=== PATIENT | female | born 1975 | race Caucasian/White ===

== ENCOUNTER → 2016-05-18 | Outpatient (CLI) | payer BC ==
--- NOTE | 2016-05-18 09:02 | MA ---
Screening Digital Mammogram With Tomosynthesis Clinical Indications: Routine screening. Technique: Standard digital cephalocaudal and tomosynthesis mediolateral oblique projections were ob tained. The digital images were processed by the [employer] computer aided detection system. Comparison: December 2014, December 2013 and August 2012. Breast density: D; The breast tissue is extremely dense. This may lower the sensitivity of mammograph y. There is diffuse prominent ductal pattern. Findings: CAD was reviewed. There is a 14 mm round density in the 12 o'clock position of the left eunice ast. The remainder of the left and right breast are stable. Impression: Mass versus cyst, upper left breast. Recommendation: Ultrasound for further evaluation.. BI-RADS 0. Additional imaging of the left breast. [facility] will send a result letter to the patient. Negative mammography should not preclude additional workup of a clinically suspicious finding. The patient's information is entered into a reminder system with a target due date for her next mammo gram.
== END ==
LOC: FIMAGING 08:24
DX: Z12.31 Encounter for screening mammogram for malignant neoplasm of breast (principal)
CPT/HCPCS: G0202

== ENCOUNTER → 2016-05-20 | Outpatient (CLI) | payer BC ==
--- NOTE | 2016-05-20 13:18 | US ---
Left Breast Ultrasound History: Evaluate nodular asymmetry noted in the upper central left breast on screening breast tomogr aphy May 18, 2016. Technique: Longitudinal and transverse images were obtained utilizing a 15 MHz transducer. Findings: No palpable mass is detected in the upper left breast on my physical examination. Sonograph ic interrogation demonstrates prominent fibroglandular elements that would correlate well with the ap pearance mammographically. No solid or cystic mass is identified.. Impression: Benign findings when considering mammographic and sonographic assessment, BI-RADS 2. Recommendation: Resume routine mammographic screening in one year as long as physical examination is negative.. Findings and follow-up recommendations were reviewed with the patient in detail. [facility] will send a result letter to the patient.
== END ==
LOC: FIMAGING 12:34
PROVIDERS: ATTEND Obstetrics & Gynecology
DX: Z12.39 Encounter for other screening for malignant neoplasm of breast (principal); N63 Unspecified lump in breast

== ENCOUNTER → 2017-05-22 | Outpatient (CLI) | payer OTHER | LOC: FIMAGING 10:54 | PROVIDERS: ATTEND Obstetrics & Gynecology | DX: Z12.31 Encounter for screening mammogram for malignant neoplasm of breast (principal); Z80.3 Family history of malignant neoplasm of breast ==

== ENCOUNTER → 2018-05-28 | Outpatient (CLI) | payer OTHER | LOC: FIMAGING 15:33 | PROVIDERS: ATTEND Obstetrics & Gynecology | DX: Z12.31 Encounter for screening mammogram for malignant neoplasm of breast (principal) ==